=== PATIENT | female | born 1970 | race Caucasian/White ===

== ENCOUNTER 2016-11-03 07:26 | Inpatient (IN) | payer SELFPAY ==
[~2016-11-03] VITALS: Ht 170.2 cm; Wt 69.6 kg
[2016-11-03] VITALS (10 sets, daily range): BP systolic 90–146; BP diastolic 53–84; PULSE 37–57; RESP 18–24; TEMP 97.6–98.7; O2SAT 97–100
[2016-11-03] MEDS ORDERED: SODIUM CHLOR 0.9% 1000 ML INJ 1,000 ML IV SCH (07:39)
[2016-11-03] MEDS ORDERED: PROM25TA5 PO (07:45)
[2016-11-03] MEDS ORDERED: PROCHLORPERAZINE INJ 10 MG/2 ML VIAL IV PUSH ONE (07:45)
--- NOTE | 2016-11-03 07:46 | PD ---
HPI Chief Complaint: GI Complaint Time Seen by Provider: 07:36 Travel History International Travel<30 days: No Contact w/Intl Traveler<30days: No Traveled to known affect area: No History of Present Illness HPI The patient is 46 years old. She reports nausea and vomiting or 7 hours or so. Last night she had one alcoholic drink. Yesterday she spoke to her as well. She woke up at midnight and has been has been nauseated and vomiting. EMS administered Zofran and started IV fluids. Blood pressure was 130/80 on scene pulse of 50. Blood sugar was normal. The patient denies a past medical history otherwise. She does report some pain in the suprapubic abdomen which is worse with palpation. No fever. No vaginal bleeding or discharge. Pt has hx hysterectomy. PFSH Past Medical History Medical History: Denies Significant Hx Influenza Vaccination: No ?: Not Past Surgical History Hysterectomy: Yes Social History Alcohol Use: Yes Tobacco Use: Yes Substance Use: Yes (smokes pot) Allergies-Medications (Allergen,Severity, Reaction): Coded Allergies: Naprosyn (Verified Allergy, Severe, Nausea/Vomiting, 11/03/16) Sulfa (Verified Allergy, Severe, Nausea/Vomiting, 11/03/16) Reported Meds & Prescriptions Reported Meds & Active Scripts Active Phenergan (Promethazine HCl) 25 Mg Tab 25 Mg PO Q6H PRN Review of Systems Except as stated in HPI: all other systems reviewed are Neg General / Constitutional: No: Fever Gastrointestinal: Positive: Nausea, Vomiting, Abdominal Pain Psychiatric: Positive: Substance Abuse Physical Exam Narrative GENERAL: 46 yo F, WNWD, moderate distress 2/2 n/v SKIN: Warm and dry. HEAD: Atraumatic. Normocephalic. EYES: Pupils equal and round. No scleral icterus. No injection or drainage. ENT: No nasal bleeding or discharge. Mucous membranes pink and moist. NECK: Trachea midline. No JVD. CARDIOVASCULAR: HR evelio 38 on monitoring. Regular rhythm. RESPIRATORY: No accessory muscle use. Clear to auscultation. Breath sounds equal bilaterally. GASTROINTESTINAL: Soft. Diffuse non-specific guarding. MUSCULOSKELETAL: Extremities without clubbing, cyanosis, or edema. No obvious deformities. NEUROLOGICAL: Awake and alert. No obvious cranial nerve deficits. Motor grossly within normal limits. Five out of 5 muscle strength in the arms and legs. Normal speech. PSYCHIATRIC: Appropriate mood and affect; insight and judgment normal. Data Data Last Documented VS Vital Signs Date Time Temp Pulse Resp B/P Pulse Ox O2 Delivery O2 Flow Rate FiO2 11/03/16 08:48 37 18 146/62 98 Room Air 11/03/16 07:30 97.6 VS reviewed Orders Complete Blood Count With Diff (11/03/16 07:39) Comprehensive Metabolic Panel (11/03/16 07:39) Lipase (11/03/16 07:39) Urinalysis - C+S If Indicated (11/03/16 07:39) Iv Access Insert/Monitor (11/03/16 07:39) Ecg Monitoring (11/03/16 07:39) Oximetry (11/03/16 07:39) Sodium Chlor 0.9% 1000 Ml Inj (Ns 1000 M (11/03/16 07:39) Sodium Chloride 0.9% Flush (Ns Flush) (11/03/16 07:45) Electrocardiogram (11/03/16 07:39) Prochlorperazine Inj (Compazine Inj) (11/03/16 07:45) Drug Screen, Random Urine (11/03/16 07:39) Alcohol (Ethanol) (11/03/16 07:39) Metoclopramide Inj (Reglan Inj) (11/03/16 09:00) Diphenhydramine Inj (Benadryl Inj) (11/03/16 09:00) Troponin I (11/03/16 10:07) Thyroid Stimulating Hormone (11/03/16 10:07) Admit Order (Ed Use Only) (11/03/16 10:08) Labs Laboratory Tests Test 11/03/16 07:45 White Blood Count 10.9 TH/MM3 Red Blood Count 3.74 MIL/MM3 Hemoglobin 11.3 GM/DL Hematocrit 33.5 % Mean Corpuscular Volume 89.7 FL Mean Corpuscular Hemoglobin 30.3 PG Mean Corpuscular Hemoglobin 33.8 % Concent Red Cell Distribution Width 14.1 % Platelet Count 354 TH/MM3 Mean Platelet Volume 6.8 FL Neutrophils (%) (Auto) 86.0 % Lymphocytes (%) (Auto) 7.9 % Monocytes (%) (Auto) 3.4 % Eosinophils (%) (Auto) 0.8 % Basophils (%) (Auto) 1.9 % Neutrophils # (Auto) 9.3 TH/MM3 Lymphocytes # (Auto) 0.9 TH/MM3 Monocytes # (Auto) 0.4 TH/MM3 Eosinophils # (Auto) 0.1 TH/MM3 Basophils # (Auto) 0.2 TH/MM3 CBC Comment DIFF FINAL Differential Comment Sodium Level 144 MEQ/L Potassium Level 3.6 MEQ/L Chloride Level 110 MEQ/L Carbon Dioxide Level 22.3 MEQ/L Anion Gap 12 MEQ/L Blood Urea Nitrogen 20 MG/DL Creatinine 0.94 MG/DL Estimat Glomerular Filtration 65 ML/MIN Rate Random Glucose 164 MG/DL Calcium Level 9.0 MG/DL Total Bilirubin 1.0 MG/DL Aspartate Amino Transf 21 U/L (AST/SGOT) Alanine Aminotransferase 26 U/L (ALT/SGPT) Alkaline Phosphatase 52 U/L Troponin I LESS THAN 0.02 NG/ML Total Protein 6.8 GM/DL Albumin 3.7 GM/DL Lipase 107 U/L Thyroid Stimulating Hormone 2.300 uIU/ML 3rd Gen Ethyl Alcohol Level LESS THAN 3 MG/DL MDM Medical Decision Making Medical Screen Exam Complete: Yes Emergency Medical Condition: Yes Medical Record Reviewed: Yes Differential Diagnosis Gastritis, pancreatitis, appendicitis, acute cholecystitis, ascending cholangitis, AAA, perforated viscous, mesenteric ischemia, hepatitis, cystitis, hydronephrosis/hydroureter/nephroureter calculus, mesenteric adenitis, biliary colic Narrative Course Bradycardia observed here. Pt is unsure if she has a history of bradycardia. She has required 3 doses of antiemetics including Zofran given by EMS Phenergan and Reglan given here. Case discussed with Dr. Ventura for the hospitalist service. Case discussed with Dr. Leach for the cardiology service. We'll observe the patient here given the sinus bradycardia with runs into 30s. BP stable. EKG: Sinus, rate 49, qtc 507 Tn < 0.02 LFTs normal TSH within normal range Tox: + THC EtOH < 3 CBC & BMP Diagram 11/03/16 07:45 Diagnosis Primary Impression: Bradycardia Additional Impression: Nausea & vomiting Qualified Code: R11.2 - Non-intractable vomiting with nausea, unspecified vomiting type Admitting Information Admitting Physician Requests: Observation Referrals: Primary Care Physician 2 days Additional Instructions: You have a choice when it comes to health care, and we are glad that you chose [facility]. Hopefully, we have met your expectations on today's visit. You are welcome to return to [facility] at any time, as we are committed to meeting the health care needs of our community. Med/Other Pt SpecificInfo: Prescription(s) given Scripts Promethazine (Phenergan)25 Mg Tab25 Mg PO Q6H PRN (Nausea/Vomiting) #10 TAB Ref 0 Prov:Mauro Schwartz MD 11/03/16 Mauro Schwartz MD Nov 03, 2016 07:46
[2016-11-03] MEDS: SODIUM CHLORIDE 0.9% FLUSH 10 ML FLUSH IV FLUSH PRN ×2 (07:48→09:13)
[2016-11-03 07:49] LABS: AUTOMATED NEUTROPHIL # 9.3 TH/MM3 (1.8-7.7); BASOPHIL # 0.2 TH/MM3 (0-0.2); BASOPHIL % 1.9 % (0.0-2.0); EOSINOPHIL # 0.1 TH/MM3 (0-0.4); EOSINOPHIL % 0.8 % (0.0-4.0); HEMATOCRIT 33.5 % (35.0-46.0); HEMO FLAGS DIFF FINAL; LYMPH % 7.9 % (9.0-44.0); LYMPHOCYTE # 0.9 TH/MM3 (1.0-4.8); MEAN CELL VOLUME 89.7 FL (80.0-100.0); MEAN CORPUSCULAR HEMOGLOBIN 30.3 PG (27.0-34.0); MEAN CORPUSCULAR HGB CONC 33.8 % (32.0-36.0); MONO % 3.4 % (0.0-8.0); PLATELET COUNT 354 TH/MM3 (150-450); RED BLOOD COUNT 3.74 MIL/MM3 (4.00-5.30); RED CELL DISTRIBUTION WIDTH 14.1 % (11.6-17.2); WHITE BLOOD COUNT 10.9 TH/MM3 (4.0-11.0)
[2016-11-03 07:56] LABS: CHLORIDE 110 MEQ/L (98-107); POTASSIUM 3.6 MEQ/L (3.5-5.1); SODIUM (NA) 144 MEQ/L (136-145)
[2016-11-03 08:00] LABS: ANION GAP 12 MEQ/L (5-15); BICARBONATE 22.3 MEQ/L (21.0-32.0); BLOOD UREA NITROGEN 20 MG/DL (7-18)
[2016-11-03 08:03] LABS: ALT (GPT) 26 U/L (10-53); AST (GOT) 21 U/L (15-37); GLOMERULAR FILTRATION RATE 65 ML/MIN (>89)
[2016-11-03 08:06] LABS: ALKALINE PHOSPHATASE 52 U/L (45-117)
[2016-11-03] MEDS ORDERED: diphenhydrAMINE HCL 50 MG/ML VIAL IV PUSH ONE (09:00)
[2016-11-03] MEDS ORDERED: METOCLOPRAMIDE HCL 10 MG/2 ML VIAL IV PUSH ONE (09:00)
[2016-11-03 10:16] LABS: BLOOD, URINE NEG (NEG); GLUCOSE,URINE NEG (NEG); NITRITE,URINE NEG (NEG)
[2016-11-03 10:17] LABS: KETONE, URINE 80 OR GREATER mg/dL (NEG)
[2016-11-03 10:25] LABS: METHOD OF COLLECTION CLEAN CATCH; URINE COLOR YELLOW (YELLW/STRAW)
[2016-11-03 10:26] LABS: AMPHETAMINE, URINE NEG (NEG); COMMENT (UR) CULT NOT INDICATED; CULTURE IF INDICATED CULT NOT INDICATED; RBC, URINE 0-3 /hpf (0-3); SQUAMOUS EPITHELIAL CELL URINE 0-5 /hpf (0-5)
[2016-11-03 10:34] LABS: BARBITURATES, URINE NEG (NEG)
[2016-11-03 10:39] LABS: COCAINE, URINE NEG (NEG)
[2016-11-03] MEDS ORDERED: SODIUM CHLORIDE 0.9% FLUSH 10 ML FLUSH IV FLUSH PRN (10:45)
[2016-11-03] MEDS ORDERED: NALOXONE HCL 0.4 MG/ML AMP IV PRN (10:45)
[2016-11-03] MEDS ORDERED: ATROPINE SULFATE 1 MG/ML VIAL IV PUSH PRN (10:45)
[2016-11-03] MEDS: SODIUM CHLOR 0.9% 1000 ML INJ 1,000 ML IV SCH ×2 (10:52→20:34)
[2016-11-03] MEDS: ONDANSETRON HCL 4 MG/2 ML VIAL IVP PRN ×3 (11:11→20:51)
[2016-11-03] MEDS ORDERED: RESP: ALBUTEROL 2.5 MG/IPRATROPIUM 0.5 MG NEB (PRN) NEB (12:15)
[2016-11-03] MEDS ORDERED: RESP: ALBUTEROL 2.5 MG/IPRATROPIUM 0.5 MG NEB (SCH) NEB ONE (12:30)
--- NOTE | 2016-11-03 14:56 | HHI.HP ---
HPI Service [facility] Primary Care Physician No Primary Care Physician Admission Diagnosis Bradycardia, N/V Diagnoses: (1) Gastroenteritis Diagnosis: Principal (2) Bradycardia Diagnosis: Principal Chief Complaint: n/v/d Travel History International Travel<30 Days: No Contact w/Intl Traveler <30 Da: No Traveled to Known Affected Are: No History of Present Illness 46-year-old female with history of depression and anxiety states she was ill starting last night. She states she was shaking and vomiting. Also admits to having diarrhea, but only admits to mild abdominal pain. States she has a sore throat from vomiting. Admits to fevers, nausea, and dizziness. She states her arms and legs feel like they're "full of sand". Denies recent sick contacts. Patient appears very anxious on exam limiting history, and she admits to having a lot of stress. The patient's neighbor and friend are present at bedside. Her neighbor states that the patient had a UTI 2 weeks ago and was ill at that time and has looked pale over the last couple weeks. Patient denies any dysuria. Patient was admitted due to bradycardia in the 30s. Review of Systems ROS Limitations: Clinical Condition Constitutional: COMPLAINS OF: Fever, Chills, Dizziness Ears, nose, mouth, throat: COMPLAINS OF: Throat pain Gastrointestinal: COMPLAINS OF: Abdominal pain, Diarrhea, Nausea, Vomiting Genitourinary: DENIES: Dysuria Past Family Social History Past Medical History Anxiety and depression Past Surgical History L5 Discectomy Hysterectomy per EMR Reported Medications Ibuprofen prn pain Allergies: Coded Allergies: Naprosyn (Verified Allergy, Severe, Nausea/Vomiting, 11/03/16) Sulfa (Verified Allergy, Severe, Nausea/Vomiting, 11/03/16) Family History Patient does not know her family history as they are not close. Social History Patient has 3 adult [place]. Admits to marijuana use but denies any other illicit drugs. Physical Exam Vital Signs Vital Signs Date Time Temp Pulse Resp B/P Pulse Ox O2 Delivery O2 Flow Rate FiO2 11/03/16 14:38 98.4 57 24 133/84 100 11/03/16 14:00 98.4 57 24 133/84 11/03/16 12:35 98.4 49 24 107/61 100 11/03/16 11:32 43 18 128/63 98 11/03/16 10:19 43 18 140/69 97 Room Air 11/03/16 08:48 37 18 146/62 98 Room Air 11/03/16 07:50 51 18 90/53 98 Room Air 11/03/16 07:30 97.6 50 22 131/66 100 Physical Exam GENERAL: This is a well-nourished, well-developed patient, in no apparent distress. SKIN: No rashes, ecchymoses or lesions. Warm and dry. HEAD: Atraumatic. Normocephalic. EYES: No scleral icterus. No injection or drainage. NECK: Trachea midline. CARDIOVASCULAR: Bradycardic rate and regular rhythm without murmurs, gallops, or rubs. RESPIRATORY: Clear to auscultation. Breath sounds equal bilaterally. No wheezes , rales, or rhonchi. GASTROINTESTINAL: Abdomen soft, non-tender, nondistended. No guarding. NEUROLOGICAL: Awake and alert. Motor grossly within normal limits. Normal speech. PSYCHIATRIC: Anxious mood and affect; restless. Laboratory Laboratory Tests Test 11/03/16 11/03/16 11/03/16 07:45 10:10 13:09 White Blood Count 10.9 Red Blood Count 3.74 Hemoglobin 11.3 Hematocrit 33.5 Mean Corpuscular Volume 89.7 Mean Corpuscular Hemoglobin 30.3 Mean Corpuscular Hemoglobin 33.8 Concent Red Cell Distribution Width 14.1 Platelet Count 354 Mean Platelet Volume 6.8 Neutrophils (%) (Auto) 86.0 Lymphocytes (%) (Auto) 7.9 Monocytes (%) (Auto) 3.4 Eosinophils (%) (Auto) 0.8 Basophils (%) (Auto) 1.9 Neutrophils # (Auto) 9.3 Lymphocytes # (Auto) 0.9 Monocytes # (Auto) 0.4 Eosinophils # (Auto) 0.1 Basophils # (Auto) 0.2 CBC Comment DIFF FINAL Differential Comment Sodium Level 144 Potassium Level 3.6 Chloride Level 110 Carbon Dioxide Level 22.3 Anion Gap 12 Blood Urea Nitrogen 20 Creatinine 0.94 Estimat Glomerular Filtration 65 Rate Random Glucose 164 Calcium Level 9.0 Total Bilirubin 1.0 Aspartate Amino Transf 21 (AST/SGOT) Alanine Aminotransferase 26 (ALT/SGPT) Alkaline Phosphatase 52 Troponin I LESS THAN 0.02 LESS THAN 0.02 Total Protein 6.8 Albumin 3.7 Lipase 107 Thyroid Stimulating Hormone 2.300 3rd Gen Ethyl Alcohol Level LESS THAN 3 Urine Collection Type CLEAN CATCH Urine Color YELLOW Urine Turbidity CLEAR Urine pH 7.0 Urine Specific [place] 1.022 Urine Protein 100 Urine Glucose (UA) NEG Urine Ketones 80 OR GREATER Urine Occult Blood NEG Urine Nitrite NEG Urine Bilirubin NEG Urine Leukocyte Esterase SMALL Urine RBC 0-3 Urine WBC 6-8 Urine Squamous Epithelial 0-5 Cells Microscopic Urinalysis Comment CULT NOT INDICATED Urine Collection Time 10:10 Urine Opiates Screen NEG Urine Barbiturates Screen NEG Urine Amphetamines Screen NEG Urine Benzodiazepines Screen NEG Urine Cocaine Screen NEG Urine Cannabinoids Screen POS Result Diagram: 11/03/16 0745 11/03/16 0745 Assessment and Plan Assessment and Plan 46-year-old female with: Gastroenteritis: Nausea, vomiting, diarrhea. White blood cell count normal. Abdominal exam benign. Mild prerenal azotemia. Ketones in the urine from vomiting. -NPO as patient continues to vomit even with ice chips -Zofran -IV fluids Bradycardia: HR in the 30's per ED note. HR 49-60 on exam and then later improved in the 80's. Troponin <0.02. TSH normal. ED physician spoke with cardiology. EKG #1 personally interpreted with sinus bradycardia, RAD, QTc 507 , nonspecific T-wave inversion in V3 through V5. EKG #2 with sinus rhythm, RAD , improved QTc of 424, and nonspecific T-wave inversion in V3 through V6. No report of chest pain. -Monitor on telemetry -Serial EKGs DVT prevention: SCDs. Case management consulted for PCP f/u. Likely discharge tomorrow if clinically improved. Written by Barbara Lee PA-C acting as scribe for Dr. Guzman on 11/03/16 at 1444. Nurse later informed me that the patient was treated for gonorrhea/chlamydia/ genital herpes at a [facility] care recently. RN verified no lesions present currently and no report of vaginal discharge. All or portions of this note were transcribed by scribe []. I, Dr. Ghazal Guzman personally performed the history, physical exam, and medical decision making; and confirmed the accuracy of the information in the transcribed note. Authenticated by Dr. Ghazal Guzman on 11/04/16 at 17:03. Discussed Condition With ED physician Barbara Lee Nov 03, 2016 14:56 Ghazal Guzman MD Nov 04, 2016 17:03
[2016-11-03] MEDS: SODIUM CHLORIDE 0.9% FLUSH 10 ML FLUSH IV FLUSH SCH (21:00)
[2016-11-04] VITALS (8 sets, daily range): BP systolic 104–174; BP diastolic 59–92; PULSE 41–57; RESP 18–20; TEMP 98.1–99; O2SAT 99–100
[2016-11-04] MEDS: ONDANSETRON HCL 4 MG/2 ML VIAL IVP PRN ×3 (02:40→17:29)
[2016-11-04] MEDS ORDERED: PNEUMOCOCCAL POLYVALENT INJ 25 MCG/0.5 ML SYR IM ONE (09:00)
[2016-11-04] MEDS: SODIUM CHLORIDE 0.9% FLUSH 10 ML FLUSH IV FLUSH SCH ×2 (09:00→21:00)
--- NOTE | 2016-11-04 09:19 | EKG ---
Date Performed: 11/03/2016 Time Performed: 20:07:54 PTAGE: 46 years EKG: Sinus bradycardia with PAC(s) Prolonged QT interval Rightward axis Anterolateral T wave ifrah nges are nonspecific Borderline ECG PREVIOUS TRACING : 11/03/2016 16.09 DOCTOR: Jason Peterson Interpretating Date/Time 11/04/2016 09:17:31
[2016-11-04] MEDS: SODIUM CHLOR 0.9% 1000 ML INJ 1,000 ML IV SCH ×2 (09:30→14:55)
--- NOTE | 2016-11-04 10:14 | EKG ---
Date Performed: 11/03/2016 Time Performed: 16:09:20 PTAGE: 46 years EKG: Sinus bradycardia with PAC(s) Right axis deviation Right ventricular hypertrophy Abnormal E CG PREVIOUS TRACING : 11/03/2016 07.43 DOCTOR: Jason Peterson Interpretating Date/Time 11/04/2016 10:12:47
--- NOTE | 2016-11-04 10:38 | HHI.PR ---
Subjective Remarks Patient is feeling much better however one started on full liquid diet she drank a lot of soda and then had an episode of emesis. The patient states that she has been under a lot of stress recently. She lost her mother last year and a close friend recently. She has no family in the area. Her kids are grown. She states she has been having trouble adjusting. She admits to anxiety depression and tearfulness. Denies suicidality or plan. The patient states that she has been hospitalized psychiatrically once 20 years ago. She is agreeable to psychiatry consult. Objective Vitals Vital Signs Date Time Temp Pulse Resp B/P Pulse Ox O2 Delivery O2 Flow Rate FiO2 11/04/16 04:00 52 11/04/16 04:00 98.7 52 20 155/71 100 11/04/16 00:00 98.6 57 20 104/59 100 11/04/16 00:00 57 11/03/16 20:00 98.7 46 22 135/76 100 11/03/16 20:00 46 11/03/16 16:00 50 11/03/16 16:00 60 100 11/03/16 14:38 98.4 57 24 133/84 100 11/03/16 14:00 98.4 57 24 133/84 11/03/16 12:35 98.4 49 24 107/61 100 11/03/16 11:32 43 18 128/63 98 I/O 11/03/16 11/03/16 11/03/16 11/04/16 11/04/16 11/04/16 07:00 15:00 23:00 07:00 15:00 23:00 Intake Total 1200 ml 987 ml 388 ml Balance 1200 ml 987 ml 388 ml Intake Oral 0 ml 0 ml IV Total 1200 ml 987 ml 388 ml # Voids 1 2 2 # Bowel Movements 1 0 Result Diagram: 11/03/16 0745 11/03/16 0745 Objective Remarks GENERAL: Well-nourished, well-developed lean middle-aged female patient. Tearful and anxious. SKIN: Warm and dry. HEAD: Normocephalic. EYES: No scleral icterus. No injection or drainage. NECK: Supple, trachea midline. No JVD or lymphadenopathy. CARDIOVASCULAR: Regular rate and rhythm without murmurs, gallops, or rubs. RESPIRATORY: Breath sounds equal bilaterally. No accessory muscle use. GASTROINTESTINAL: Abdomen soft, non-tender, nondistended. EXTREMITIES: No cyanosis, or edema. NEUROLOGICAL: Awake, alert, and oriented x 3. Non-focal. A/P Problem List: (1) Gastroenteritis ICD Code: K52.9 Status: Acute (2) Bradycardia ICD Code: R00.1 Status: Acute Assessment and Plan -Nausea and vomiting. Suspect gastroenteritis. Full liquid diet as tolerated. If vomiting continues may need to get GI to see her. Abdomen is benign. -Sinus bradycardia. Rate has improved today. It was likely vagal in etiology to the nausea. Urine drug screen was negative except for marijuana, TSH was within normal limits. -Anxiety and depression. Consult psychiatry. -DVT prophylaxis with SCDs and ambulation. Ghazal Guzman MD Nov 04, 2016 10:38
--- NOTE | 2016-11-04 11:17 | EKG ---
Date Performed: 11/03/2016 Time Performed: 07:43:12 PTAGE: 46 years EKG: Sinus bradycardia with sinus arrhythmia Prolonged QT interval Rightward axis Right ventricu lar hypertrophy Anterior T wave changes are nonspecific Abnormal ECG NO PREVIOUS TRACING DOCTOR: Jason Peterson Interpretating Date/Time 11/04/2016 11:16:22
[2016-11-04] MEDS ORDERED: hydrOXYzine HCL 50 MG/ML VIAL IM ONE (20:15)
[2016-11-04] MEDS: ACETAMINOPHEN/HYDROcodone 325 MG/5 MG TAB PO PRN (22:32)
[2016-11-05] VITALS: BP 162/90; PULSE 45; RESP 20; TEMP 99.4; O2SAT 100
[2016-11-05] MEDS: SODIUM CHLOR 0.9% 1000 ML INJ 1,000 ML IV SCH ×3 (01:30→22:53)
[2016-11-05 04:00] VITALS: BP 150/94; PULSE 45; RESP 18; TEMP 99.4; O2SAT 98
[2016-11-05] MEDS: SODIUM CHLORIDE 0.9% FLUSH 10 ML FLUSH IV FLUSH SCH ×2 (07:32→21:00)
[2016-11-05] MEDS: ACETAMINOPHEN/HYDROcodone 325 MG/5 MG TAB PO PRN ×2 (07:35→14:39)
[2016-11-05] MEDS: ONDANSETRON HCL 4 MG/2 ML VIAL IVP PRN ×3 (07:35→22:53)
[2016-11-05 08:00] VITALS: BP 143/81; PULSE 43; PULSE 45; RESP 17; TEMP 97.8; O2SAT 99
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
[2016-11-05 12:00] VITALS: BP 130/85; PULSE 55; RESP 18; TEMP 97.6; O2SAT 98
--- NOTE | 2016-11-05 14:51 | HHI.PR ---
Subjective Remarks reports n/v/abd pain worse. regarding pain, says " its not in my head'. agrees with trying remeron tonight. Objective Vital Signs Date Time Temp Pulse Resp B/P Pulse Ox O2 Delivery O2 Flow Rate FiO2 11/05/16 12:00 97.6 55 18 130/85 98 11/05/16 08:00 97.8 43 17 143/81 99 11/05/16 08:00 45 11/05/16 04:00 99.4 45 18 150/94 98 11/05/16 00:00 99.4 45 20 162/90 100 11/04/16 20:00 98.7 45 20 174/92 99 11/04/16 16:00 99.0 48 20 155/80 100 I/O 11/04/16 11/04/16 11/04/16 11/05/16 11/05/16 11/05/16 07:00 15:00 23:00 07:00 15:00 23:00 Intake Total 388 ml 1085 ml 60 ml 600 ml Output Total 850 ml Balance 388 ml 235 ml 60 ml 600 ml Intake Oral 0 ml 550 ml 60 ml 600 ml IV Total 388 ml 535 ml Output Urine Total 600 ml Emesis 250 ml # Voids 2 3 1 1 # Bowel Movements 0 1 0 Result Diagram: 11/03/16 0745 11/03/16 0745 Objective Remarks GENERAL: sitting up in bed. anxious, crying. SKIN: Warm and dry. HEAD: Normocephalic. EYES: No scleral icterus. No injection or drainage. NECK: Supple, trachea midline. No JVD. CARDIOVASCULAR: Regular rate and rhythm without murmurs, gallops, or rubs. RESPIRATORY: Breath sounds equal bilaterally. No accessory muscle use. GASTROINTESTINAL: Abdomen soft. variable exam - ttp with palpation, not with stethoscope, however ttp on repeat stethoscope. no rebound. MUSCULOSKELETAL: No cyanosis, or edema. BACK: Nontender without obvious deformity. No CVA tenderness. A/P Assessment and Plan //Nausea and vomiting. Suspect gastroenteritis vs psychiatric. -cont Full liquid diet as tolerated. -11/05 variable abd exam. pain on palpation, not with stethoscope. suspect somatization, but i dont think she will ever beleive it without any workup. CT abd. //Sinus bradycardia. Rate has improved. It was likely vagal in etiology to the nausea. Urine drug screen was negative except for marijuana, TSH was within normal limits. no acute issues. //Anxiety and depression. -appreciate psych help. -11/05 start mirtazepine HS -cont to monitor. //DVT prophylaxis with SCDs and ambulation. Justin Gregory MD Nov 05, 2016 14:51
[2016-11-05 16:00] VITALS: BP 146/87; PULSE 57; RESP 17; TEMP 98.9; O2SAT 99
[2016-11-05] MEDS ORDERED: DIATRIZOATE MEGLUM/DIATRIZOATE SOD 9 ML CUP PO ONE (16:00)
[2016-11-05 16:28] LABS: BASOPHIL % 0.3 % (0.0-2.0); EOSINOPHIL % 0.4 % (0.0-4.0); HEMATOCRIT 31.9 % (35.0-46.0); HEMO FLAGS DIFF FINAL; LYMPH % 17.7 % (9.0-44.0); LYMPHOCYTE # 1.6 TH/MM3 (1.0-4.8); MEAN CORPUSCULAR HGB CONC 34.1 % (32.0-36.0); MONO % 5.1 % (0.0-8.0); NEUT % 76.5 % (16.0-70.0); PLATELET COUNT 278 TH/MM3 (150-450); RED BLOOD COUNT 3.62 MIL/MM3 (4.00-5.30); RED CELL DISTRIBUTION WIDTH 13.7 % (11.6-17.2); WHITE BLOOD COUNT 9.1 TH/MM3 (4.0-11.0)
[2016-11-05 17:00] LABS: ALKALINE PHOSPHATASE 52 U/L (45-117); ALT (GPT) 51 U/L (10-53); ANION GAP 14 MEQ/L (5-15); AST (GOT) 29 U/L (15-37); BETA HCG QUANT 2 MIU/ML (0-5); BICARBONATE 21.3 MEQ/L (21.0-32.0); BLOOD UREA NITROGEN 16 MG/DL (7-18); CHLORIDE 105 MEQ/L (98-107); GLOMERULAR FILTRATION RATE 101 ML/MIN (>89); SODIUM (NA) 140 MEQ/L (136-145); TOTAL BILIRUBIN ADULT 1.1 MG/DL (0.2-1.0)
[2016-11-05 20:00] VITALS: BP 166/94; PULSE 44; PULSE 51; RESP 16; TEMP 99.3; O2SAT 100
[2016-11-05] MEDS: MIRTAZAPINE 15 MG TAB PO SCH (20:33)
--- NOTE | 2016-11-05 20:52 | RADHPO ---
EXAM DATE/TIME: 11/05/2016 18:34 [facility] COMPARISON: No previous studies available for comparison. INDICATIONS : Bilateral abdomen and pelvis pain. ORAL CONTRAST: Prescribed oral contrast ingested. RADIATION DOSE: 8.41 CTDIvol (mGy) MEDICAL HISTORY : None SURGICAL HISTORY : Hysterectomy. Discectomy, lumbar. ENCOUNTER: Initial ACUITY: 3 days PAIN SCALE: 9/10 LOCATION: Bilateral lower quadrant upper quadrant TECHNIQUE: Volumetric scanning of the abdomen and pelvis was performed. Using automated exposure control and adjustment of the mA and/or kV according to patient size, radiation dose was kept as low as reasonably achievable to obtain optimal diagnostic quality images. FINDINGS: CT Abdomen: The liver, spleen, pancreas, kidneys, adrenals are unremarkable. There is no evidence for any appreciable pathological adenopathy, or bowel obstruction. Slight degree of somewhat linear irr egular opacity is seen in bilateral lung bases mostly consistent with scarring. Small right pleural e ffusion is seen. There is slight ascites which extends from the tip of the liver into the pelvic deya on. The gallbladder demonstrates multiple stones without gallbladder wall thickening, or pericholecys tic fluid. CT pelvis: There is no evidence for mass, abscess formation, or any significant adenopathy within the pelvis. CONCLUSION: Cholelithiasis and slight ascites with a small right pleural effusion. Lay Phoenix MD on November 05, 2016 at 20:48 Board Certified Radiologist. This report was verified electronically.
[2016-11-05] MEDS ORDERED: POTASSIUM CHLORIDE 10 MEQ CONTROLLED RELEASE TAB PO ONE (22:45)
[2016-11-05] MEDS: ACETAMINOPHEN 325 MG TAB PO PRN (22:58)
[2016-11-06] VITALS: BP 143/81; PULSE 46; RESP 16; TEMP 99.1; O2SAT 99
[2016-11-06 04:00] VITALS: BP 143/81; PULSE 46; RESP 16; TEMP 99.1; O2SAT 99
[2016-11-06 05:26] LABS: AUTOMATED NEUTROPHIL # 4.6 TH/MM3 (1.8-7.7); BASOPHIL # 0.1 TH/MM3 (0-0.2); EOSINOPHIL # 0.1 TH/MM3 (0-0.4); EOSINOPHIL % 1.2 % (0.0-4.0); HEMO FLAGS DIFF FINAL; LYMPH % 19.3 % (9.0-44.0); LYMPHOCYTE # 1.2 TH/MM3 (1.0-4.8); MEAN CELL VOLUME 89.6 FL (80.0-100.0); MEAN CORPUSCULAR HEMOGLOBIN 29.6 PG (27.0-34.0); MEAN CORPUSCULAR HGB CONC 33.1 % (32.0-36.0); MONO % 5.8 % (0.0-8.0); NEUT % 72.7 % (16.0-70.0); PLATELET COUNT 246 TH/MM3 (150-450); RED BLOOD COUNT 3.57 MIL/MM3 (4.00-5.30); RED CELL DISTRIBUTION WIDTH 13.6 % (11.6-17.2); WHITE BLOOD COUNT 6.4 TH/MM3 (4.0-11.0)
[2016-11-06 05:34] LABS: INTERNATIONAL NORMALIZED RATIO 1.1 RATIO; POTASSIUM 3.2 MEQ/L (3.5-5.1); PROTHROMBIN TIME - PATIENT 11.8 SEC (9.8-11.6)
[2016-11-06 05:40] LABS: BICARBONATE 21.5 MEQ/L (21.0-32.0); MAGNESIUM 2.1 MG/DL (1.5-2.5)
[2016-11-06 05:44] LABS: TOTAL BILIRUBIN ADULT 1.2 MG/DL (0.2-1.0)
[2016-11-06 08:00] VITALS: BP 143/80; PULSE 49; RESP 18; TEMP 98.8; O2SAT 98
[2016-11-06] MEDS: SODIUM CHLOR 0.9% 1000 ML INJ 1,000 ML IV SCH (08:34)
[2016-11-06] MEDS: SODIUM CHLORIDE 0.9% FLUSH 10 ML FLUSH IV FLUSH SCH ×2 (09:00→21:00)
[2016-11-06] MEDS: ONDANSETRON HCL 4 MG/2 ML VIAL IVP PRN ×2 (11:13→17:07)
[2016-11-06] MEDS: ACETAMINOPHEN/HYDROcodone 325 MG/5 MG TAB PO PRN ×2 (11:13→17:07)
[2016-11-06 12:00] VITALS: BP 150/84; PULSE 46; RESP 18; TEMP 97.7; O2SAT 97
[2016-11-06] MEDS ORDERED: POTASSIUM CHLORIDE 25 MEQ EFFERVESCENT TAB PO ONE (12:30)
--- NOTE | 2016-11-06 13:08 | HHI.PR ---
Subjective Remarks Patient reports her Remeron has helped with anxiety. She does report that pain is a little better today. She is able to eat popsicles, however has not had any full liquid such as ensure. We discussed her CT abdomen results including ascites, gallstone without evidence of cholecystitis, no evidence of acute life-threatening pathology. She says if she is able to tolerate food, she would feel comfortable going home. Objective Vital Signs Date Time Temp Pulse Resp B/P Pulse Ox O2 Delivery O2 Flow Rate FiO2 11/06/16 12:00 97.7 46 18 150/84 97 11/06/16 08:00 98.8 49 18 143/80 98 11/06/16 04:00 99.1 46 16 143/81 99 11/06/16 00:00 99.1 46 16 143/81 99 11/05/16 20:00 51 11/05/16 20:00 51 11/05/16 20:00 99.3 44 16 166/94 100 11/05/16 16:00 98.9 57 17 146/87 99 I/O 11/05/16 11/05/16 11/05/16 11/06/16 11/06/16 11/06/16 07:00 15:00 23:00 07:00 15:00 23:00 Intake Total 600 ml 520 ml 360 ml Balance 600 ml 520 ml 360 ml Intake Oral 600 ml 520 ml 360 ml # Voids 1 4 2 # Bowel Movements 0 1 1 Result Diagram: 11/06/16 0442 11/06/16 0442 Imaging Last Impressions Abdomen/Pelvis CT 11/05/16 0000 Signed Impressions: Service Date/Time: October 18:34 - CONCLUSION: Cholelithiasis and slight ascites with a small right pleural effusion. Lay Phoenix MD Objective Remarks GENERAL: sitting up in bed. Appears more calm today. Learn oriented 3. SKIN: Warm and dry. HEAD: Normocephalic. EYES: No scleral icterus. No injection or drainage. NECK: Supple, trachea midline. No JVD. CARDIOVASCULAR: Regular rate and rhythm without murmurs, gallops, or rubs. RESPIRATORY: Breath sounds equal bilaterally. No accessory muscle use. GASTROINTESTINAL: Abdomen soft. variable exam - nontender with stethoscope palpation, however apprehension and guarding with finger palpation. MUSCULOSKELETAL: No cyanosis, or edema. BACK: Nontender without obvious deformity. No CVA tenderness. A/P Assessment and Plan //Nausea and vomiting. //Abdominal pain. -CT with incidental findings of gallstone without evidence of cholecystitis, some small amount of ascites, no acute pathology to explain pain.. -Likely somatization -cont Full liquid diet as tolerated. -11/05 variable abd exam. pain on palpation, not with stethoscope. suspect somatization, but i dont think she will ever beleive it without any workup. CT abd. 11/06. Pain improved on Remeron. If patient is able to tolerate diet, can be discharged home. //Sinus bradycardia. Rate has improved. It was likely vagal in etiology to the nausea. Urine drug screen was negative except for marijuana, TSH was within normal limits. no acute issues. //Anxiety and depression. -appreciate psych help. -11/05 start mirtazepine HS -11/06 Anxiety, depression, pain improved on Remeron. -cont to monitor. //DVT prophylaxis with SCDs and ambulation. Discharge Planning Patient tolerates full liquid diet, can be discharged home with Remeron, antiemetics.. Justin Gregory MD Nov 06, 2016 13:08
[2016-11-06] MEDS ORDERED: MIRTA15 PO (13:12)
[2016-11-06] MEDS ORDERED: ZOFR4TAB3 SL (13:12)
[2016-11-06] MEDS ORDERED: POTASSIUM CHLORIDE 10 MEQ CONTROLLED RELEASE TAB PO ONE (15:00)
[2016-11-06 16:00] VITALS: BP 150/81; PULSE 48; RESP 20; TEMP 99.2; O2SAT 100
[2016-11-06] MEDS: D5-1/2 NS + KCL 30 MEQ INJ 1,000 ML IV SCH (17:07)
--- NOTE | 2016-11-06 19:14 | RADHPO ---
EXAM DATE/TIME: 11/06/2016 17:34 [facility] COMPARISON: No previous studies available for comparison. INDICATIONS : Right upper quadrant pain with nausea for one day. DOSE: 4.1 mCi Tc99m Mebrofenin IV MEDICAL HISTORY : Anxiety. Depression. SURGICAL HISTORY : Hysterectomy. ENCOUNTER: Initial ACUITY: 1 day PAIN SCALE: 5/10 LOCATION: Right upper quadrant TECHNIQUE: Following the intravenous administration of radiotracer, dynamic sequential images were performed wit h continuous acquisition. FINDINGS: HEPATIC KINETICS: There is prompt uptake of radiotracer in the liver. No focal defects are seen. There is normal rate of washout from the hepatic parenchyma. BILIARY CLEARANCE: Activity is first seen in the extrahepatic biliary system at 10 minutes. There is normal excretion i nto the small bowel. GALLBLADDER: Activity is first seen in the gallbladder at 10 minutes. Common bile duct kinetics are normal and th ere is no evidence of biliary obstruction. BILIARY ENTRIC REFLUX: None observed. CONCLUSION: No biliary obstruction is seen. There is normal filling of the gallbladder. Gavin Dockery MD on November 06, 2016 at 19:12 Board Certified Radiologist. This report was verified electronically.
[2016-11-06 20:00] VITALS: BP 147/90; PULSE 53; PULSE 55; RESP 18; TEMP 99.5; O2SAT 97
[2016-11-06] MEDS: MIRTAZAPINE 15 MG TAB PO SCH (21:42)
[2016-11-07] VITALS (9 sets, daily range): BP systolic 126–158; BP diastolic 76–88; PULSE 43–79; RESP 18–20; TEMP 97.4–99.4; O2SAT 95–99
[2016-11-07] MEDS: D5-1/2 NS + KCL 30 MEQ INJ 1,000 ML IV SCH (05:37)
[2016-11-07] MEDS: ACETAMINOPHEN 325 MG TAB PO PRN (05:42)
[2016-11-07] MEDS: ONDANSETRON HCL 4 MG/2 ML VIAL IVP PRN ×3 (05:42→19:58)
[2016-11-07 08:03] LABS: BASOPHIL % 0.6 % (0.0-2.0); EOSINOPHIL # 0.1 TH/MM3 (0-0.4); EOSINOPHIL % 2.5 % (0.0-4.0); HEMO FLAGS DIFF FINAL; LYMPH % 24.4 % (9.0-44.0); LYMPHOCYTE # 1.1 TH/MM3 (1.0-4.8); MEAN CELL VOLUME 89.7 FL (80.0-100.0); MEAN CORPUSCULAR HEMOGLOBIN 29.9 PG (27.0-34.0); MEAN CORPUSCULAR HGB CONC 33.3 % (32.0-36.0); MONO % 8.5 % (0.0-8.0); PLATELET COUNT 272 TH/MM3 (150-450); RED BLOOD COUNT 3.68 MIL/MM3 (4.00-5.30); RED CELL DISTRIBUTION WIDTH 13.6 % (11.6-17.2); WHITE BLOOD COUNT 4.6 TH/MM3 (4.0-11.0)
[2016-11-07 08:14] LABS: POTASSIUM 3.7 MEQ/L (3.5-5.1)
[2016-11-07 08:17] LABS: BICARBONATE 27.8 MEQ/L (21.0-32.0); MAGNESIUM 2.1 MG/DL (1.5-2.5)
[2016-11-07] MEDS: SODIUM CHLORIDE 0.9% FLUSH 10 ML FLUSH IV FLUSH SCH ×2 (09:00→21:00)
[2016-11-07] MEDS: ACETAMINOPHEN/HYDROcodone 325 MG/5 MG TAB PO PRN ×2 (13:17→19:59)
--- NOTE | 2016-11-07 14:48 | HHI.PR ---
Subjective Remarks Patient seen this morning around 11:30 AM. She states that abdominal pain still continued severe. Still with nausea and vomiting. She vomited ensure yesterday. She does say that she smokes marijuana twice daily, has never had nausea, vomiting, or abdominal pain like this before. I discussed with gastroenterology, will plan to scope patient on Wednesday. Objective Vital Signs Date Time Temp Pulse Resp B/P Pulse Ox O2 Delivery O2 Flow Rate FiO2 11/07/16 14:17 18 11/07/16 12:00 98.7 48 18 150/85 98 11/07/16 08:00 97.4 49 18 139/87 95 11/07/16 07:00 18 11/07/16 04:00 98.9 50 18 131/79 98 11/07/16 00:00 97.7 79 20 158/78 97 11/06/16 20:00 55 11/06/16 20:00 99.5 53 18 147/90 97 11/06/16 16:00 99.2 48 20 150/81 100 I/O 11/06/16 11/06/16 11/06/16 11/07/16 11/07/16 11/07/16 07:00 15:00 23:00 07:00 15:00 23:00 Intake Total 360 ml 1250 ml 200 ml Output Total 125 ml Balance 360 ml 1250 ml -125 ml 200 ml Intake Oral 360 ml 650 ml 200 ml IV Total 600 ml Emesis 125 ml # Voids 2 3 3 1 # Bowel Movements 1 2 Result Diagram: 11/07/1615 11/07/1615 Objective Remarks GENERAL: sitting up in bed. Appears more calm today. aao 3. SKIN: Warm and dry. HEAD: Normocephalic. EYES: No scleral icterus. No injection or drainage. NECK: Supple, trachea midline. No JVD. CARDIOVASCULAR: Regular rate and rhythm without murmurs, gallops, or rubs. RESPIRATORY: Breath sounds equal bilaterally. No accessory muscle use. GASTROINTESTINAL: Abdomen soft. variable exam - nontender with stethoscope palpation, however apprehension and guarding with finger palpation. MUSCULOSKELETAL: No cyanosis, or edema. BACK: Nontender without obvious deformity. No CVA tenderness. A/P Assessment and Plan //Nausea and vomiting. //Abdominal pain. -CT with incidental findings of gallstone without evidence of cholecystitis, some small amount of ascites, no acute pathology to explain pain.. -Likely somatization -cont Full liquid diet as tolerated. -11/05 variable abd exam. pain on palpation, not with stethoscope. suspect somatization, but i dont think she will ever beleive it without any workup. CT abd. 11/06. Pain improved on Remeron. If patient is able to tolerate diet, can be discharged home. = Pain continues. We'll add Marinol for nausea. Not tolerating by mouth fluids. Appreciate GI assistance. Plan for scope on Wednesday. //Sinus bradycardia. Rate has improved. It was likely vagal in etiology to the nausea. Urine drug screen was negative except for marijuana, TSH was within normal limits. no acute issues. //Anxiety and depression. -appreciate psych help. -11/05 start mirtazepine HS -11/06 Anxiety, depression, pain improved on Remeron. -cont to monitor. //DVT prophylaxis with SCDs and ambulation. Discharge Planning Patient is not tolerating liquid diet. GI scope on wednesday. Justin Gregory MD Nov 07, 2016 14:48
[2016-11-07] MEDS ORDERED: POTASSIUM CHLORIDE INJ 30 MEQ in DEXT 5%-NACL 0.45% 1000 ML INJ 1,000 ML IV SCH (15:00)
--- NOTE | 2016-11-07 17:15 | MB ---
cc: RENETTA BUNN MD DATE OF CONSULTATION 11/07/16 [address] Guzman. REASON FOR CONSULTATION Nausea, vomiting, abdominal pain. HISTORY OF PRESENT ILLNESS Thank you for the consultation. A 46-year-old lady who has been reasonably healthy until last Wednesday, four days ago, when she started having nausea, abdominal cramping and then vomiting. The patient started having pain in the mid epigastric area radiating to the right side. She also had loose stool. She said she strained for it, but when it comes, it come loose and yucky with difficulty to evacuate at the beginning. The patient denied any previous history similar to this. She denied any other medical problem that she is aware of. She takes ibuprofen for headache, otherwise, no other major medical problem. PAST MEDICAL HISTORY 1. Appendectomy, 2. Hysterectomy 3. She has psychological issues being consulted by psychiatry 4. Anxiety and depression. PAST SURGICAL HISTORY Disk surgery on L5 ALLERGIES NAPROXEN SULFA FAMILY HISTORY Positive for pancreatitis with her dad. SOCIAL HISTORY She smoked marijuana on and off and she drinks alcohol a little bit, no smoking. REVIEW OF SYSTEMS All 12-point negative except HPI. PHYSICAL EXAMINATION GENERAL: Alert, oriented no acute distress. VITAL SIGNS: Stable. HEENT: Pupils are round, reactive to light. NECK: Supple. CHEST: Clear to auscultation and PERCUSSION. CARDIAC: Regular rate and rhythm. ABDOMEN: Soft, moderate tenderness in the mid epigastric area and right upper quadrant with some rebound, seems like it is out of proportion to her exam. No hepatosplenomegaly. No masses. Positive bowel sounds. EXTREMITIES: No edema, clubbing or cyanosis. NEUROLOGIC: Neurologically intact. Normal muscle movement and strength. PSYCHIATRIC: Seems to be a little bit depressed and stressed out. LABORATORY DATA White count 4.6, hemoglobin 11.0, platelets 272, INR 1.1, total bilirubin 1.2, AST 29, ALT 51, alk phos 52, lipase on admission 107, drug screen was positive for marijuana. IMAGING STUDIES HIDA scan was completely normal. CT scan showed gallstones and small right pleural effusion and slight ascites. ASSESSMENT/PLAN A 46-year-old lady who has nausea, vomiting and abdominal pain. She is taking NSAIDs with diarrhea, mild anemia. This could be gastroenteritis but it could be peptic ulcer disease. I doubt that this is gallbladder disease with the normal HIDA. I recommend doing upper endoscopy and a colonoscopy. I discussed with that the procedure and complication. This will be done on Wednesday. Meanwhile, we will continue supportive care. Can start PPI and further plan depends on the findings. MD TARIQ Sanchez/ /12:32 PM /5:07 PM
[2016-11-07] MEDS: DRONABINOL 5 MG CAP PO SCH (17:39)
[2016-11-07] MEDS: MIRTAZAPINE 15 MG TAB PO SCH (21:56)
[2016-11-08] VITALS (7 sets, daily range): BP systolic 125–159; BP diastolic 71–88; PULSE 43–56; RESP 16–18; TEMP 97.5–98.5; O2SAT 96–100
[2016-11-08] MEDS: ACETAMINOPHEN/HYDROcodone 325 MG/5 MG TAB PO PRN ×4 (01:33→21:09)
[2016-11-08] MEDS: ONDANSETRON HCL 4 MG/2 ML VIAL IVP PRN ×4 (01:41→21:08)
[2016-11-08] MEDS: POTASSIUM CHLORIDE INJ 30 MEQ in DEXT 5%-NACL 0.45% 1000 ML INJ 1,000 ML IV SCH ×2 (03:15→15:07)
[2016-11-08 08:03] LABS: POTASSIUM 3.9 MEQ/L (3.5-5.1)
[2016-11-08] MEDS: SODIUM CHLORIDE 0.9% FLUSH 10 ML FLUSH IV FLUSH SCH ×2 (08:05→21:00)
[2016-11-08 08:07] LABS: AUTOMATED NEUTROPHIL # 2.1 TH/MM3 (1.8-7.7); EOSINOPHIL # 0.2 TH/MM3 (0-0.4); EOSINOPHIL % 4.3 % (0.0-4.0); HEMATOCRIT 33.9 % (35.0-46.0); HEMO FLAGS DIFF FINAL; LYMPH % 31.8 % (9.0-44.0); LYMPHOCYTE # 1.3 TH/MM3 (1.0-4.8); MEAN CELL VOLUME 90.2 FL (80.0-100.0); MEAN CORPUSCULAR HGB CONC 32.2 % (32.0-36.0); NEUT % 53.9 % (16.0-70.0); PLATELET COUNT 281 TH/MM3 (150-450); RED BLOOD COUNT 3.76 MIL/MM3 (4.00-5.30); RED CELL DISTRIBUTION WIDTH 13.9 % (11.6-17.2)
[2016-11-08 08:11] LABS: BICARBONATE 30.9 MEQ/L (21.0-32.0)
[2016-11-08] MEDS: DRONABINOL 5 MG CAP PO SCH ×2 (11:45→15:06)
[2016-11-08] MEDS ORDERED: PEG (High)/E-LYTE SOLN 4000 ML BTL PO ONE (16:00)
--- NOTE | 2016-11-08 17:37 | HHI.PR ---
Subjective Remarks Follow-up for abdominal pain, nausea, and vomiting. She is currently prepping with [facility] for scope tomorrow. Patient still admits to abdominal pain over the right upper quadrant. She admits to nausea but denies any vomiting. Objective Vitals Vital Signs Date Time Temp Pulse Resp B/P Pulse Ox O2 Delivery O2 Flow Rate FiO2 11/08/16 12:00 97.7 48 18 139/78 96 11/08/16 08:05 53 11/08/16 08:00 97.7 43 18 159/82 96 11/08/16 05:10 97.5 44 16 125/78 97 11/08/16 00:04 98.2 56 16 125/71 97 11/07/16 20:04 98.4 45 18 151/88 99 11/07/16 20:00 51 I/O 11/07/16 11/07/16 11/07/16 11/08/16 11/08/16 11/08/16 07:00 15:00 23:00 07:00 15:00 23:00 Intake Total 200 ml Balance 200 ml Intake Oral 200 ml # Voids 1 1 1 Result Diagram: 11/08/16 0655 11/08/16 0655 Imaging Last Impressions Hepatobiliary Scan Nuclear Medicine 11/06/16 0000 Signed Impressions: Service Date/Time: Sunday, November 06, 2016 17:34 - CONCLUSION: No biliary obstruction is seen. There is normal filling of the gallbladder. Gavin Dockery MD Abdomen/Pelvis CT 11/05/16 0000 Signed Impressions: Service Date/Time: October 18:34 - CONCLUSION: Cholelithiasis and slight ascites with a small right pleural effusion. Lay Phoenix MD Objective Remarks GENERAL: Thin pale patient sitting on side of bed. Appears uncomfortable but in no apparent distress. SKIN: Warm and dry. HEAD: Atraumatic. Normocephalic. CARDIOVASCULAR: Regular rate and rhythm. RESPIRATORY: No accessory muscle use. Clear to auscultation. Breath sounds equal bilaterally. GASTROINTESTINAL: Active bowel sounds. Tender over RUQ, but abdomen is soft and nondistended. No guarding. NEUROLOGICAL: Awake and alert. Normal speech. Urinary Catheter: No Vascular Central Line Catheter: No A/P Problem List: (1) Gastroenteritis ICD Code: K52.9 Status: Acute (2) Bradycardia ICD Code: R00.1 Status: Acute Assessment and Plan //Abdominal pain, Nausea and vomiting: -CT with incidental findings of gallstone without evidence of cholecystitis, some small amount of ascites, no acute pathology to explain pain. -HIDA scan shows no biliary obstruction -Has had variable physical exams with no pain on stethoscope palpation; suspect somatization. -Pain continues. Marinol was added for nausea. Continue Zofran. -NPO. Continue D5 1/2 normal saline with potassium. -GI consultation appreciated. Endoscopy and colonoscopy tomorrow. -Labs reviewed today with normal white blood cell count. Hemoglobin stable at 10.9. //Sinus bradycardia. Rate 48 this morning. Consistently runs high 40's-50's. Could be vagal in etiology to the nausea or could have naturally low HR. Urine drug screen was negative except for marijuana, TSH was within normal limits. No acute issues. //Anxiety and depression. -Psychiatry consultation appreciated. -Started Remeron on 11/05 -Pain improved on Remeron. -Continue to monitor. //DVT prophylaxis with SCDs and ambulation. Barbara Lee Nov 08, 2016 17:37 Justin Gregory MD Nov 08, 2016 20:57
[2016-11-08] MEDS: MIRTAZAPINE 15 MG TAB PO SCH (21:08)
[2016-11-09] VITALS: BP 133/56; PULSE 60; RESP 18; TEMP 97.5; O2SAT 100
[2016-11-09] MEDS: POTASSIUM CHLORIDE INJ 30 MEQ in DEXT 5%-NACL 0.45% 1000 ML INJ 1,000 ML IV SCH (04:12)
[2016-11-09] MEDS: ONDANSETRON HCL 4 MG/2 ML VIAL IVP PRN (04:15)
[2016-11-09] MEDS: ACETAMINOPHEN/HYDROcodone 325 MG/5 MG TAB PO PRN (04:16)
[2016-11-09 06:53] VITALS: BP 112/83; PULSE 49; RESP 20; TEMP 98.3; O2SAT 100
--- NOTE | 2016-11-09 07:30 | GIPROC ---
[facility] [address] [place] [address], [id number] COLONOSCOPY PROCEDURE REPORT EXAM DATE: 11/09/2016 PATIENT NAME: Ej Bowman MR #: [id number] BIRTHDATE: 1970 ENDOSCOPIST: Adriane Hathaway MD ORDER #: [id number] [employer] SUPERVISOR: Arianne Garza and Adam Morales STATUS: inpatient INDICATIONS: The patient is a 46 yr old female here for a colonoscopy due to abdominal pain, diarrhea PROCEDURE PERFORMED: Colonoscopy with polypectomy MEDICATIONS: None and Per Anesthesia. PREP QUALITY: fair PREP TYPE:GoL[facility] ESTIMATED BLOOD LOSS: None CONSENT: The patient understands the risks and benefits of the procedure and understands that these risks include, but are not limited to: sedation, allergic reaction, infection, perforation and/or bleeding. Alternative means of evaluation and treatment include, among others: physical exam, x-rays, and/or surgical intervention. The patient elects to proceed with this endoscopic procedure. medical equipment was checked for proper function. Hand hygiene and appropriate measures for infection prevention was taken. After the risks, benefits and alternatives of the procedure were thoroughly explained, Informed consent was verified, confirmed and timeout was successfully executed by the treatment team. A digital exam revealed external hemorrhoids The Pentax [id number] endoscope was introduced through the anus and advanced to the cecum, which was identified by both the appendix and ileocecal valve. The instrument was then slowly withdrawn as the colon was fully examined. COLON FINDINGS: Polyp sessile in rectum-6 mm-hot snare polypectomy with complete removal. Retroflexed views revealed internal hemorrhoids and Retroflexed views revealed small internal hemorrhoids The scope was then completely withdrawn from the patient and the procedure terminated. PROCEDURE WITHDRAWAL TIME:7minutes ADVERSE EVENTS: There were no complications. IMPRESSIONS: 1. Polyp sessile in rectum-6 mm-hot snare polypectomy with complete removal 2. Retroflexed views revealed internal hemorrhoids 3. Retroflexed views revealed small internal hemorrhoids 4. Revealed external hemorrhoids RECOMMENDATIONS: 1. Await biopsy results. Biopsy results will not be ready for 7-10 days. If you don't hear from us in two weeks, call our office for results. 2. Benefiber 2 tsp daily 3. Avoid NSAIDS and Aspirin 4. Ok to dc home from [facility] point if tolerating diet if dc fu gi RECALL: Colonoscopy, pending biopsy results Adriane Hathaway MD eSigned: Adriane Hathaway MD 11/09/2016 7:29 AM cc:
[2016-11-09] MEDS ORDERED: MORPHINE SULFATE 4 MG/ML INJ ONE (07:36)
[2016-11-09] MEDS ORDERED: PROPOFOL 200 MG/20 ML AMP IV ONE (07:37)
[2016-11-09] MEDS ORDERED: ACETAMINOPHEN 325 MG TAB PO ONE (07:45)
[2016-11-09] MEDS ORDERED: LABETALOL HCL 100 MG/20 ML VIAL ONE (07:47)
[2016-11-09 08:30] VITALS: BP 158/79; PULSE 97; RESP 18; TEMP 96.9; O2SAT 100
[2016-11-09] MEDS: SODIUM CHLORIDE 0.9% FLUSH 10 ML FLUSH IV FLUSH SCH (09:00)
[2016-11-09] MEDS ORDERED: MARI5CAP PO (10:10)
[2016-11-09] MEDS ORDERED: IOHEXOL 350 MG/ML 10 ML VIAL (for RAD DIAG) IV ONE (10:27)
--- NOTE | 2016-11-09 10:44 | RADHPO ---
EXAM DATE/TIME: 11/09/2016 09:57 [facility] COMPARISON: No previous studies available for comparison. INDICATIONS : Severe headache and light sensitivity. IV CONTRAST: 95 cc Omnipaque 350 (iohexol) IV RADIATION DOSE: 61.54 CTDIvol (mGy) MEDICAL HISTORY : None SURGICAL HISTORY : Hysterectomy. ENCOUNTER: Initial ACUITY: 1 day PAIN SCALE: 8/10 LOCATION: Bilateral cranial TECHNIQUE: Multiple contiguous axial images were obtained of the head. Using automated exposure control and adj ustment of the mA and/or kV according to patient size, radiation dose was kept as low as reasonably a chievable to obtain optimal diagnostic quality images. FINDINGS: CEREBRUM: The ventricles are normal for age. No evidence of midline shift, cerebral edema or blood products. No extra-axial fluid collections are seen. POSTERIOR FOSSA: The cerebellum and brainstem are intact. The 4th ventricle is midline. The cerebellar pontine angle is unremarkable. EXTRACRANIAL: The visualized portion of the orbits is intact. SKULL: The calvaria is intact. No evidence of skull fracture. POST CONTRAST: No abnormal areas of parenchymal or dural enhancement. No evidence of blood-brain barrier breakdown. CONCLUSION: Normal examination. Silverio Miramontes MD on November 09, 2016 at 10:43 Board Certified Radiologist. This report was verified electronically.
[2016-11-09] MEDS: DRONABINOL 5 MG CAP PO SCH (11:11)
[2016-11-09 12:00] VITALS: BP 110/70; PULSE 67; RESP 18; TEMP 97.1; O2SAT 97
--- NOTE | 2016-11-09 13:45 | HHI.DS ---
Discharge Summary Admission Date Nov 08, 2016 at 17:10 Discharge Date: Nov 09, 2016 Admitting Diagnosis Bradycardia, N/V (1) Gastroenteritis ICD Code: K52.9 Diagnosis: Principal (2) Bradycardia ICD Code: R00.1 Diagnosis: Principal Procedures Upper and lower endoscopy. Please see report. There is biopsy performed. Pathology will need to be followed up as outpatient. Patient conveys understanding. Brief History - From Admission 46-year-old female with history of depression and anxiety states she was ill starting last night. She states she was shaking and vomiting. Also admits to having diarrhea, but only admits to mild abdominal pain. States she has a sore throat from vomiting. Admits to fevers, nausea, and dizziness. She states her arms and legs feel like they're "full of sand". Denies recent sick contacts. Patient appears very anxious on exam limiting history, and she admits to having a lot of stress. The patient's neighbor and friend are present at bedside. Her neighbor states that the patient had a UTI 2 weeks ago and was ill at that time and has looked pale over the last couple weeks. Patient denies any dysuria. Patient was admitted due to bradycardia in the 30s. CBC/BMP: 11/08/16 0655 11/08/16 0655 Significant Findings Laboratory Tests Test 11/07/16 11/08/16 07:15 06:55 Red Blood Count 3.68 MIL/MM3 3.76 MIL/MM3 (4.00-5.30) (4.00-5.30) Hemoglobin 11.0 GM/DL 10.9 GM/DL (11.6-15.3) (11.6-15.3) Hematocrit 33.0 % 33.9 % (35.0-46.0) (35.0-46.0) Mean Platelet Volume 6.7 FL 6.8 FL (7.0-11.0) (7.0-11.0) Monocytes (%) (Auto) 8.5 % (0.0-8.0) 9.0 % (0.0-8.0) Calcium Level 8.1 MG/DL (8.5-10.1) Albumin 3.1 GM/DL (3.4-5.0) Eosinophils (%) (Auto) 4.3 % (0.0-4.0) Chloride Level 108 MEQ/L (98-107) Blood Urea Nitrogen 4 MG/DL (7-18) Imaging Last Impressions Head CT 11/09/16 0000 Signed Impressions: Service Date/Time: Wednesday, November 09, 2016 09:57 - CONCLUSION: Normal examination. Silverio Miramontes MD Hepatobiliary Scan Nuclear Medicine 11/06/16 0000 Signed Impressions: Service Date/Time: Sunday, November 06, 2016 17:34 - CONCLUSION: No biliary obstruction is seen. There is normal filling of the gallbladder. Gavin Dockery MD Abdomen/Pelvis CT 11/05/16 0000 Signed Impressions: Service Date/Time: October 18:34 - CONCLUSION: Cholelithiasis and slight ascites with a small right pleural effusion. Lay Phoenix MD PE at Discharge GENERAL: Thin pale patient sitting on side of bed. Appears uncomfortable but in no apparent distress. SKIN: Warm and dry. HEAD: Atraumatic. Normocephalic. CARDIOVASCULAR: Regular rate and rhythm. RESPIRATORY: No accessory muscle use. Clear to auscultation. Breath sounds equal bilaterally. GASTROINTESTINAL: Active bowel sounds. Tender over RUQ, but abdomen is soft and nondistended. No guarding. NEUROLOGICAL: Awake and alert. Normal speech. Hospital Course Patient underwent extensive workup including CT abdomen as above all of which is negative for pathology which would cause patient's abdominal pain. There is incidental small pleural effusion, as well as ascites, possibly secondary to recent poor nutrition. BNP normal. Psychiatry was consulted, and it mirtazapine, with some improvement in anxiety. Gastroenterology was consulted, and performed panendoscopy, which does show a villous colon polyp which was biopsied, however no cause of patient's pain identified. Patient's pain and nausea resolved with starting Marinol. Recommend that marinol be tapered off, that patient stop marijuana completely.She is feeling well on day of discharge, tolerating diet, which is going home. //Abdominal pain, Nausea and vomiting: -CT with incidental findings of gallstone without evidence of cholecystitis, some small amount of ascites, no acute pathology to explain pain. -HIDA scan shows no biliary obstruction -Has had variable physical exams with no pain on stethoscope palpation; suspect somatization. -Pain continues. Marinol was added for nausea. Continue Zofran. -NPO. Continue D5 1/2 normal saline with potassium. -GI consultation appreciated. Endoscopy and colonoscopy tomorrow. -Hemoglobin and electrolytes stable. -Suspicion for marijuana hyperemesis syndrome. Patient opposed to this, however her symptoms did resolve with Marinol. -Appears to be resolved with Marinol. We'll give a week Marinol. Recommend that this be tapered off, the patient stopped marijuana completely. //Sinus bradycardia. Rate 48 this morning. Consistently runs high 40's-50's. Could be vagal in etiology to the nausea or could have naturally low HR. Urine drug screen was negative except for marijuana, TSH was within normal limits. No acute issues. //Anxiety and depression. -Psychiatry consultation appreciated. -Started Remeron on 11/05 -Pain improved on Remeron. -Anxiety, and depression improved with Remeron. Appears to be more at ease with results of upper and lower endoscopy. //Villous colon polyp. //Hemorrhoids, colonoscopy Pathology pending. Patient will follow-up with gastroenterology as outpatient. //Incidental finding of right lower lung pleural effusion. -BNP normal. Could be related to recent poor nutrition from nausea and vomiting. She'll need to follow-up with repeat imaging as outpatient. Unrelated to patient's abdominal pain. //DVT prophylaxis with SCDs and ambulation. Pt Condition on Discharge: Good Discharge Disposition: Discharge Home Discharge Time: > 30 minutes Discharge Instructions DIET: Follow Instructions for: As Tolerated, No Restrictions Activities you can perform: Regular-No Restrictions Follow up Referrals: Gastroenterology - 2 Weeks with Adriane Hathaway MD PCP Follow-up - 1 Week with Nadya Berger MD Psychiatry Adult - 1 Week New Orders: COMP MET PROF (CMP) - 2-3 Days New Medications: Dronabinol (Marinol) 5 Mg Cap 5 MG PO BID appetite,nausea #14 Ref 0 CAP Ondansetron Odt (Zofran Odt) 4 Mg Tab 4 MG SL Q6HR PRN Nausea/Vomiting #30 Ref 0 TAB Mirtazapine (Mirtazapine) 15 Mg Tab 15 MG PO HS mood Days 30 TAB Justin Gregory MD Nov 09, 2016 13:45
--- NOTE | 2016-11-09 14:10 | HHI.PR ---
Subjective Remarks Patient seen this morning around 9 AM. Says she is feeling better. Denies any nausea vomiting today. No abdominal pain. Would like to go home. She feels that were internal has helped her nausea, vomiting, abdominal pain significantly. She agrees to follow up primary care. Decreased follow-up with gastric urology as outpatient to follow-up on colonoscopy biopsy results. Objective Vital Signs Date Time Temp Pulse Resp B/P Pulse Ox O2 Delivery O2 Flow Rate FiO2 11/09/16 12:00 97.1 67 18 110/70 97 11/09/16 11:22 18 11/09/16 08:30 96.9 97 18 158/79 100 11/09/16 07:55 76 16 178/114 100 11/09/16 07:40 72 18 156/112 100 11/09/16 07:30 98.2 70 20 192/115 100 11/09/16 06:53 98.3 49 20 112/83 100 11/09/16 05:16 18 11/09/16 00:00 97.5 60 18 133/56 100 11/08/16 20:00 56 11/08/16 20:00 98.5 51 18 127/80 100 11/08/16 16:00 98.2 55 18 136/88 96 I/O 11/08/16 11/08/16 11/08/16 11/09/16 11/09/16 11/09/16 07:00 15:00 23:00 07:00 15:00 23:00 Intake Total 1200 ml 240 ml 550 ml Balance 1200 ml 240 ml 550 ml Intake Oral 1200 ml 240 ml 250 ml Other 300 ml # Voids 1 6 3 # Bowel Movements 2 1 Result Diagram: 11/08/16 0655 11/08/16 0655 Imaging Last Impressions Head CT 11/09/16 0000 Signed Impressions: Service Date/Time: Wednesday, November 09, 2016 09:57 - CONCLUSION: Normal examination. Silverio Miramontes MD Hepatobiliary Scan Nuclear Medicine 11/06/16 0000 Signed Impressions: Service Date/Time: Sunday, November 06, 2016 17:34 - CONCLUSION: No biliary obstruction is seen. There is normal filling of the gallbladder. Gavin Dockery MD Abdomen/Pelvis CT 11/05/16 0000 Signed Impressions: Service Date/Time: October 18:34 - CONCLUSION: Cholelithiasis and slight ascites with a small right pleural effusion. KDesiree Phoenix MD Objective Remarks GENERAL: sitting up in bed. Appears calm. Aao 3. SKIN: Warm and dry. HEAD: Normocephalic. EYES: No scleral icterus. No injection or drainage. NECK: Supple, trachea midline. No JVD. CARDIOVASCULAR: Regular rate and rhythm without murmurs, gallops, or rubs. RESPIRATORY: Breath sounds equal bilaterally. No accessory muscle use. GASTROINTESTINAL: Abdomen soft. Nontender. Nondistended. No rebound or guarding. MUSCULOSKELETAL: No cyanosis, or edema. BACK: Nontender without obvious deformity. No CVA tenderness. A/P Assessment and Plan //Abdominal pain, Nausea and vomiting: -CT with incidental findings of gallstone without evidence of cholecystitis, some small amount of ascites, no acute pathology to explain pain. -HIDA scan shows no biliary obstruction -Has had variable physical exams with no pain on stethoscope palpation; suspect somatization. -Pain continues. Marinol was added for nausea. Continue Zofran. -NPO. Continue D5 1/2 normal saline with potassium. -GI consultation appreciated. Endoscopy and colonoscopy tomorrow. -Hemoglobin and electrolytes stable. -Suspicion for marijuana hyperemesis syndrome. Patient opposed to this, however her symptoms did resolve with Marinol. -Appears to be resolved with Marinol. We'll give a week Marinol. Recommend that this be tapered off, the patient stopped marijuana completely. //Sinus bradycardia. Rate 48 this morning. Consistently runs high 40's-50's. Could be vagal in etiology to the nausea or could have naturally low HR. Urine drug screen was negative except for marijuana, TSH was within normal limits. No acute issues. //Anxiety and depression. -Psychiatry consultation appreciated. -Started Remeron on 11/05 -Pain improved on Remeron. -Anxiety, and depression improved with Remeron. Appears to be more at ease with results of upper and lower endoscopy. //Villous colon polyp. //Hemorrhoids, colonoscopy Pathology pending. Patient will follow-up with gastroenterology as outpatient. //Incidental finding of right lower lung pleural effusion. -BNP normal. Could be related to recent poor nutrition from nausea and vomiting. She'll need to follow-up with repeat imaging as outpatient. Unrelated to patient's abdominal pain. //DVT prophylaxis with SCDs and ambulation. Discharge Planning Patient's nausea, vomiting, abdominal pain is improved. Tolerating food. She' ll follow-up with primary care and gastroenterology as outpatient. Biopsies pending. She will need follow-up with gastroenterology for these results. Patient conveys understanding. Justin Gregory MD Nov 09, 2016 14:10
[2016-11-17] MEDS ORDERED: EXTR500C PO (15:13)
== END 2016-11-09 13:56 | disposition home or self-care (01) | DRG 392 ==
LOC: PHED 07:26 → PHEDA 10:08 → PHICU 11:42 → PH3A 11-04 14:55 → OBSVTOIN 11-08 17:10
PROVIDERS: ADMIT Internal Medicine; ATTEND Internal Medicine
PROC: 0DB68ZX Excision of Stomach, Via Natural or Artificial Opening Endoscopic, Diagnostic (ICD-10-PCS; 2016-11-09)
PROC: 0DB38ZX Excision of Lower Esophagus, Via Natural or Artificial Opening Endoscopic, Diagnostic (ICD-10-PCS; 2016-11-09)
PROC: 0DBP8ZX Excision of Rectum, Via Natural or Artificial Opening Endoscopic, Diagnostic (ICD-10-PCS; principal; 2016-11-09 07:00)
PROC: 0DB98ZX Excision of Duodenum, Via Natural or Artificial Opening Endoscopic, Diagnostic (ICD-10-PCS; 2016-11-09 07:00)
DX: K52.9 Noninfective gastroenteritis and colitis, unspecified (principal); J90 Pleural effusion, not elsewhere classified; R00.1 Bradycardia, unspecified; D12.8 Benign neoplasm of rectum; K44.9 Diaphragmatic hernia without obstruction or gangrene; K29.70 Gastritis, unspecified, without bleeding; K29.80 Duodenitis without bleeding; K20.9 Esophagitis, unspecified; F41.8 Other specified anxiety disorders; F43.21 Adjustment disorder with depressed mood; F60.3 Borderline personality disorder; F12.90 Cannabis use, unspecified, uncomplicated; R79.89 Other specified abnormal findings of blood chemistry; K64.4 Residual hemorrhoidal skin tags; K64.8 Other hemorrhoids; Z87.440 Personal history of urinary (tract) infections; Z23 Encounter for immunization
CPT/HCPCS: 70470; 74176; 78226; 80048; 80053; 80069; 80307; 81001; 82247; 82248; 83690; 83735; 83880; 84443; 84484; 84702; 85025; 85610; 88305; 88312; 90471; 90732; 93005; 94664; 96361; 96374; 96375; A9537; G0009; G0378; J0780; J1200; J2270; J2405; J2765; J3410; J3480; J7030; Q9963; Q9967

== ENCOUNTER → 2016-12-02 | Outpatient (CLI) | payer SELFPAY ==
[~2016-12-02] MED LIST: EXTR500C PO; MARI5CAP PO; MIRTA15 PO; ZOFR4TAB3 SL
[2016-12-04 13:54] LABS: IGA SERUM 78 mg/dL (81-463)
[2016-12-06 03:49] LABS: ENDOMYSIAL AB TITER ND (<1:5); TISSUE TRANSGLUTAMINASE AB LESS THAN 1 U/mL (()); TISSUE TRANSGLUTAMINASE AB IGG LESS THAN 1 U/mL (())
== END ==
LOC: PLAB 08:15
DX: K21.9 Gastro-esophageal reflux disease without esophagitis (principal)
CPT/HCPCS: 36415; 82784; 83516